=== PATIENT | male | born 1985 | race Caucasian/White ===

== ENCOUNTER 2020-07-31 16:57 | Observation (INO) | payer MEDICARE, MEDICAID ==
[~2020-07-31 16:57] MED LIST: Iopamidol-370 76% 500 ML 1 ML ONE
[2020-07-31] MEDS ORDERED: Ondansetron PF 4 MG/2 ML Vial ONE (17:51)
[2020-07-31] MEDS ORDERED: Morphine 2 MG/ML VIAL ONE (17:52)
[2020-07-31 18:17] LABS: ALT (SGPT) 29 U/L (8-55); AST (SGOT) 24 U/L (5-34); Alkaline Phosphatase 91 U/L (40-110); Anion Gap 10 mmol/L (10-20); BUN (Urea Nitrogen) 6 mg/dL (8.9-20.6); Bilirubin, Total 0.2 mg/dL (0.2-1.2); Calc. Creatinine Clearance 0 mL/min (70-130); Carbon Dioxide 27 mmol/L (22-29); Chloride 106 mmol/L (98-107); Glucose 120 mg/dL (70-105); Potassium 3.8 mmol/L (3.5-5.1); Sodium 139 mmol/L (136-145)
[2020-07-31 18:28] LABS: Band 9 % (5-11); Eosinophils 2 % (0-10); Hemoglobin 14.1 g/dL (14.0-18.0); Lymphocytes 30 % (21-51); MDiff Complete? YES; Mean Corpuscular HGB CONC 32.1 g/dL (32.0-36.0); Mean Corpuscular Hemoglobin 30.9 pg (27.0-31.0); Mean Corpuscular Volume 96.2 fL (78.0-98.0); Mean Platelet Volume 7.1 fL (7.4-10.4); Monocytes 3 % (0-10); Neutrophil 39 % (42-75); Platelet Count 264 thou/uL (130-400); Platelet Morphology Comment Appears Adequate; RBC Distribution Width 12.9 % (11.5-14.5); RBC Morphology Normal; Reactive Lymphocytes 17 % (0-10); Red Blood Cell (RBC) Count 4.56 mill/uL (4.70-6.10); White Blood Cell (WBC) Count 5.9 thou/uL (4.8-10.8)
[2020-07-31] MEDS ORDERED: Ketorolac Tromethamine 30 MG/ML VIAL ONE (18:47)
[2020-07-31 19:20] LABS: Bilirubin Negative (Negative); Blood, Urine Negative (Negative); Clarity Clear (Clear); Glucose, Urine (Dipstick) Normal (Negative); Ketone, Urine Negative (Negative); Leukocyte Negative Leu/uL (Negative); Nitrite Negative (Negative); Protein, Urine (Dipstick) Negative (Neg-Trace); Specific Gravity, Urine 1.014 (1.002-1.036); Urobilinogen Normal mg/dL (Less than 2); pH, Urine 6.5 (5.0-9.0)
[2020-07-31] MEDS ORDERED: Morphine 2 MG/ML VIAL SLOW IVP PRN (21:39)
[2020-07-31] MEDS ORDERED: Ketorolac Tromethamine 30 MG/ML VIAL IVP PRN (21:40)
[2020-07-31] MEDS ORDERED: Sodium Chloride 0.9% 1,000 ML IV SCH (21:45)
[2020-07-31] MEDS: Ondansetron PF 4 MG/2 ML Vial IVP PRN (22:32)
[2020-07-31 23:30] VITALS: BMI 36.8
[2020-08-01 04:30] LABS: SARS-CoV-2 PCR by NAA Not Detected (NotDetected)
[2020-08-01] MEDS ORDERED: Levothyroxine Sodium 50 MCG TAB PO SCH (06:00)
[2020-08-01] MEDS: Ondansetron PF 4 MG/2 ML Vial IVP PRN ×2 (06:23→12:46)
[2020-08-01] MEDS ORDERED: Fentanyl 100 MCG/2 ML VIAL ONE ×2 (06:34→08:07)
[2020-08-01] MEDS ORDERED: Lidocaine 2% Jelly 5 ML TUBE ONE (06:34)
[2020-08-01] MEDS ORDERED: Lidocaine 1% w/Epinephrine 1:100K 20 ML VIAL ONE (07:40)
[2020-08-01] MEDS ORDERED: Bupivacaine 0.25% HCL 30 ML VIAL ONE (07:40)
[2020-08-01] MEDS ORDERED: Morphine 2 MG/ML VIAL ONE (08:25)
[2020-08-01] MEDS ORDERED: Levofloxacin 500 mg/D5W 100 ml Premix Bag ONE (08:40)
[2020-08-01] MEDS ORDERED: Ciprofloxacin HCL/Dexameth Otic Drops 7.5 ml Bottle L EAR SCH (09:00)
[2020-08-01] MEDS ORDERED: Famotidine 20 MG TAB PO SCH (09:00)
[2020-08-01] MEDS ORDERED: Montelukast Sodium 10 mg Tablet PO SCH (09:00)
[2020-08-01] MEDS ORDERED: Succinylcholine 200 MG/10 ml SYRINGE FS ONE (09:53)
[2020-08-01] MEDS ORDERED: Rocuronium Bromide 10 MG/ML (10ML VIAL) ONE (09:53)
[2020-08-01] MEDS ORDERED: ePHEDrine 50 MG/ML VIAL ONE (09:53)
[2020-08-01] MEDS ORDERED: Glycopyrrolate 0.2 MG/ML 5 ML SYRINGE ONE ×2 (09:53)
[2020-08-01] MEDS ORDERED: Ondansetron PF 4 MG/2 ML Vial ONE (09:53)
[2020-08-01] MEDS ORDERED: PROPOFOL 200 MG/20 ML VIAL ONE (09:53)
[2020-08-01] MEDS ORDERED: Lidocaine 1% PF 5 ML VIAL ONE (09:53)
[2020-08-01] MEDS ORDERED: Ketorolac Tromethamine 30 MG/ML VIAL ONE (09:53)
[2020-08-01] MEDS ORDERED: Dexamethasone 20 MG/5 ML VIAL ONE (09:53)
[2020-08-01 12:53] VITALS: BP 109/55; TEMP 98.2
[2020-08-01] MEDS ORDERED: Melatonin 3 MG TAB PO SCH (21:00)
[2020-08-01] MEDS ORDERED: Loratadine 10 MG TAB PO SCH (21:00)
== END 2020-08-01 16:48 | disposition home or self-care (01) ==
LOC: ERS 16:57 → ONC 18:50 → INTOOBSV 18:50
PROVIDERS: ADMIT Specialist; ATTEND Specialist
PROC: 0YU60JZ Supplement Left Inguinal Region with Synthetic Substitute, Open Approach (ICD-10-PCS; principal; 2020-08-01)
DX: K40.30 Unilateral inguinal hernia, with obstruction, without gangrene, not specified as recurrent (principal); Q90.9 Down syndrome, unspecified; E03.9 Hypothyroidism, unspecified; J45.909 Unspecified asthma, uncomplicated; F79 Unspecified intellectual disabilities; G40.909 Epilepsy, unspecified, not intractable, without status epilepticus; F41.9 Anxiety disorder, unspecified; R62.50 Unspecified lack of expected normal physiological development in childhood; N50.3 Cyst of epididymis; Z79.2 Long term (current) use of antibiotics; Z79.899 Other long term (current) drug therapy; Z88.1 Allergy status to other antibiotic agents; Z20.822 Contact with and (suspected) exposure to COVID-19; R59.9 Enlarged lymph nodes, unspecified
CPT/HCPCS: 49507; 74177; 76870; 80053; 81003; 85025; 88184; 88307; 93005; 93976; 96374; 96375 ×2; 96376 ×2; 99285; C1781; G0378 ×3; J2270 ×2; U0003; U0005; 36415; 87635; J1100; J1885; J1956; J2405; J2704; J3010; J3490; Q9967; S0020